=== PATIENT | male | born 2000 ===

== ENCOUNTER 2020-08-21 18:06 | Emergency (ER) | payer BC, OTHER ==
[~2020-08-21] VITALS: Ht 177.8 cm; Wt 54.6 kg
--- NOTE | 2020-08-21 19:30 | NUR ---
CLIENT SERVICES ACCOUNT MANAGER: PT. TO ROOM FROM LOBBY AT THIS TIME.
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
[2020-08-21] MEDS ORDERED: KETOROLAC 30 MG/1 ML IM ONE (20:00)
[2020-08-21] MEDS ORDERED: ACETAMINOPHEN 500 MG TABLET PO ONE (20:00)
[2020-08-21] MEDS ORDERED: ACETAMINOPHEN 500 MG TABLET ONE (20:03)
[2020-08-21] MEDS ORDERED: KETOROLAC 30 MG/1 ML ONE (20:03)
[2020-08-21 20:04] LABS: MICROSCOPIC INDICATED
[2020-08-21 20:36] VITALS: BP 122/78
== END 2020-08-21 20:39 | disposition home or self-care (01) ==
LOC: ED 18:30
DX: S20.211A Contusion of right front wall of thorax, initial encounter (principal); W18.30XA Fall on same level, unspecified, initial encounter; Y93.89 Activity, other specified; Y92.69 Other specified industrial and construction area as the place of occurrence of the external cause; Y99.8 Other external cause status
CPT/HCPCS: 71101; 81001; 96372; 99284; J1885